=== PATIENT | female | born 1960 | race American Indian/Alaskan Native ===

== ENCOUNTER 2018-03-16 08:37 | Outpatient (CLI) | payer OTHER ==
--- NOTE | 2018-03-17 08:35 | Ultrasound Report ---
ABDOMINAL ULTRASOUND: 03/16/18 08:37:00 CLINICAL: Epigastric pain and functional dyspepsia. Nausea and chronic constipation. FINDINGS: High-resolution ultrasound demonstrates a normal liver with normal size, contour and echogenicity. No liver mass. Normal hepatic vasculature and inferior vena cava. Normal gallbladder and bile ducts. The gallbladder wall measures 2mm. The common bile duct measures 2 mm. Normal pancreatic head. The pancreatic body and tail are not well imaged. Normal abdominal aorta. A normal spleen measures 6.3 x 2.8 x 2.5cm. Normal kidneys with normal echogenicity and normal non-dilated renal collecting systems and ureters. The right kidney measures 8.7 x 4.6 x 4.9cm. The left kidney measures 8.8 x 5.6 x 4.4cm. No renal mass or calculus. No ascites or mass. IMPRESSION: Normal study
== END 2018-03-16 08:38 | disposition home or self-care (01) ==
LOC: SPVWC 08:37
PROVIDERS: ATTEND Internal Medicine Gastroenterology
DX: K30 Functional dyspepsia (principal); K59.09 Other constipation; R11.0 Nausea
CPT/HCPCS: 76700

== ENCOUNTER 2018-06-07 14:37 | Outpatient (CLI) | payer OTHER ==
--- NOTE | 2018-06-08 09:27 | Mammography Report ---
BILATERAL DIGITAL SCREENING MAMMOGRAM with CAD : 06/07/18 14:37:00 CLINICAL: Routine screening. COMPARISON:None available. FINDINGS: The breasts are heterogeneously dense, which may obscure small masses.Scattered bilateral largely punctate calcifications with benign morphology. No mass, architectural distortion or suspicious calcifications. IMPRESSION: No mammographic evidence of malignancy. BI-RADS CATEGORY: 2 -- Benign RECOMMENDATION: Routine mammographic screening in one year. COMMENT: Patient follow-up letters are generated by our [employer] application.
== END 2018-06-07 14:38 | disposition home or self-care (01) ==
LOC: SPVWC 14:37
PROVIDERS: ATTEND Family Medicine
DX: Z12.31 Encounter for screening mammogram for malignant neoplasm of breast (principal)
CPT/HCPCS: 77067